=== PATIENT | female | born 1975 | race Caucasian/White ===

== ENCOUNTER 2018-04-24 11:01 | Emergency (ER) | payer OTHER ==
[~2018-04-24] VITALS: Ht 162.6 cm; Wt 101.6 kg
[~2018-04-24 11:01] MED LIST: CIPRO500 MG PO; FLAGYL500 MG PO; NORCO 5-325 TA1 EACH PO; ZOFRAN ODT4 MG PO
[2018-04-24 11:53] LABS: ABSOLUTE BASOPHILS 0.1 thou/uL (0.0-0.2); ABSOLUTE EOSINOPHILS 0.1 thou/uL (0.0-0.7); ABSOLUTE LYMPHOCYTES 2.8 thou/uL (0.8-5.3); ABSOLUTE MONOCYTES 0.8 thou/uL (0.0-1.2); ABSOLUTE NEUTROPHILS 8.3 thou/uL (1.6-8.1); BASOPHILS 0.7 %; EOSINOPHILS 0.4 %; HEMATOCRIT 39.8 % (37.0-47.0); HEMOGLOBIN 13.3 gm/dL (12.0-15.0); LYMPHOCYTES 23.3 %; MCH 28.2 pg (26.0-34.0); MCHC 33.4 g/dL (28.0-37.0); MCV 84.5 fL (80.0-100.0); MONOCYTES 6.9 %; MPV 8.1 fl. (7.2-11.1); NUCLEATED RBCS 0 /100WBC; PLATELET COUNT* 361 thou/uL (150-400); POLYS 68.7 %; RBC 4.71 mil/uL (4.20-5.00); RDW-CV 13.3 % (10.5-14.5); WBC 12.1 thou/uL (4.0-11.0)
[2018-04-24 12:00] LABS: ANION GAP 9 mmol/L (7-16); BUN 21 mg/dL (7-18); CALCIUM 9.2 mg/dL (8.5-10.1); CHLORIDE 100 mmol/L (98-107); CO2 27 mmol/L (21-32); CREATININE 0.8 mg/dL (0.6-1.3); GLUCOSE 89 mg/dL (70-99); POTASSIUM 3.6 mmol/L (3.5-5.1); SODIUM 136 mmol/L (136-145)
[2018-04-24 12:07] LABS: ALBUMIN 3.6 g/dL (3.4-5.0); ALKALINE PHOSPHATASE 86 U/L (46-116); LIPASE 113 U/L (73-393); SGOT 18 U/L (15-37); SGPT 25 U/L (30-65); TOTAL BILIRUBIN 0.5 mg/dL (<0.1-1.0); TOTAL PROTEIN 8.3 g/dL (6.4-8.2); TROPONIN-I LEVEL <0.06 ng/mL (<0.06)
[2018-04-24 12:12] LABS: URINE BILIRUBIN NEGATIVE (Negative); URINE BLOOD 1+ (Negative); URINE CLARITY CLEAR; URINE COLOR YELLOW; URINE GLUCOSE-RANDOM NEGATIVE (Negative); URINE KETONES NEGATIVE (Negative); URINE LEUKOCYTES-REFLEX NEGATIVE (Negative); URINE NITRITE-REFLEX NEGATIVE (Negative); URINE PROTEIN NEGATIVE (Negative); URINE SPECIFIC GRAVITY <= 1.005 (1.005-1.030); URINE UROBILINOGEN 0.2 E.U./dl (0.2-1.0)
[2018-04-24] MEDS ORDERED: MOBIC15 MG PO (12:36)
[2018-04-24] MEDS ORDERED: TRAMADOL 50 MG50 MG PO (12:36)
[2018-04-24 12:39] LABS: BACTERIA-REFLEX 1-9 Few /HPF (None Seen); CASTS None Seen /LPF (None Seen); CRYSTALS None Seen /LPF (None Seen); MUCUS 0-3 Light strn/LPF (None Seen); SQUAMOUS 0-3 Few /LPF (0-3); URINE RBC 0-2 Rare /HPF (0-2); URINE WBC-REFLEX 0-5 Rare /HPF (0-5)
[2018-04-24 12:50] VITALS: BP 131/80
--- NOTE | 2018-04-25 09:34 | EKG ---
[place] [address] ELECTROCARDIOGRAM REPORT Name: BECKA MCDONALD Room: [facility]#: [id number] Admission: 04/24/18 Attend Phys: Discharge: 04/24/18 Date of : 79 Report #: [id number] THIS REPORT FOR: //name// [facility] ED Test Date: 2018-04-24 Test Time: 11:48:46 Pat Name: BECKA MCDONALD Department: Room: Gender: F Campus Administrator: GERI : 1975 Requested By: Mera Tanner Order Number: [id number] MD: Santino Vásquez Measurements Intervals [place] Rate: 90 P: 41 FL: 158 QRS: -41 QRSD: 122 T: 25 QT: 390 QTc: 478 Interpretive Statements Sinus rhythm Nonspecific IVCD with LAD No previous ECG available for comparison Electronically Signed On 04-25-2018 9:33:47 CDT by Santino Vásquez [email or web address] <ELECTRONICALLY SIGNED> By: Santino Vásquez MD, [facility] 04/25/18 0933 [id number] [id number] Santino Vásquez MD, [facility] /EPI
== END 2018-04-24 12:51 | disposition home or self-care (01) ==
LOC: M.ERS 11:01
PROVIDERS: Physician Assistant
DX: R07.81 Pleurodynia (principal); M94.0 Chondrocostal junction syndrome [Tietze]

== ENCOUNTER → 2019-02-17 | Outpatient (CLI) | payer OTHER ==
[~2019-02-17] MED LIST changes: +MOBIC15 MG PO; +TRAMADOL 50 MG50 MG PO
== END ==
LOC: M.RAD 07:50
DX: Z12.31 Encounter for screening mammogram for malignant neoplasm of breast (principal)

== ENCOUNTER 2019-09-16 12:01 | Emergency (ER) | payer OTHER ==
[~2019-09-16] VITALS: Ht 162.6 cm; Wt 96.2 kg
[2019-09-16 12:12] VITALS: BP 114/66
[2019-09-16 12:42] LABS: ABSOLUTE BASOPHILS 0.1 thou/uL (0.0-0.2); ABSOLUTE MONOCYTES 1.4 thou/uL (0.0-1.2); ABSOLUTE NEUTROPHILS 12.7 thou/uL (1.6-8.1); BASOPHILS 0.3 %; EOSINOPHILS 0.1 %; HEMATOCRIT 41.3 % (37.0-47.0); HEMOGLOBIN 14.1 gm/dL (12.0-15.0); LYMPHOCYTES 17.4 %; MCH 28.9 pg (26.0-34.0); MCHC 34.1 g/dL (28.0-37.0); MCV 84.7 fL (80.0-100.0); MONOCYTES 8.1 %; MPV 8.2 fl. (7.2-11.1); NUCLEATED RBCS 0 /100WBC; PLATELET COUNT* 362 thou/uL (150-400); POLYS 74.1 %; RBC 4.88 mil/uL (4.20-5.00); RDW-CV 13.7 % (10.5-14.5); WBC 17.2 thou/uL (4.0-11.0)
[2019-09-16 12:52] LABS: CALCIUM 9.5 mg/dL (8.5-10.1); CREATININE 1.1 mg/dL (0.6-1.3); POTASSIUM 3.4 mmol/L (3.5-5.1)
[2019-09-16 12:56] LABS: ALBUMIN 4.2 g/dL (3.4-5.0); TOTAL BILIRUBIN 0.8 mg/dL (<0.1-1.0); TOTAL PROTEIN 8.9 g/dL (6.4-8.2)
[2019-09-16 13:04] LABS: URINE BILIRUBIN NEGATIVE (Negative); URINE BLOOD 3+ (Negative); URINE CLARITY CLEAR; URINE COLOR YELLOW; URINE GLUCOSE-RANDOM NEGATIVE (Negative); URINE KETONES 1+ (Negative); URINE LEUKOCYTES-REFLEX NEGATIVE (Negative); URINE NITRITE-REFLEX NEGATIVE (Negative); URINE PROTEIN 1+ (Negative); URINE UROBILINOGEN 0.2 E.U./dl (0.2-1.0)
[2019-09-16 13:24] LABS: SQUAMOUS >10 Many /LPF (0-3)
[2019-09-16 13:25] LABS: CASTS None Seen /LPF (None Seen); CRYSTALS None Seen /LPF (None Seen); MUCUS >6 Heavy strn/LPF (None Seen); URINE RBC 3-10 Few /HPF (0-2); URINE WBC-REFLEX None Seen /HPF (0-5)
[2019-09-16] MEDS ORDERED: FLAGYL500 M1 PO (15:12)
[2019-09-16] MEDS ORDERED: CIPRO500 M1 PO (15:12)
[2019-09-16] MEDS ORDERED: ZOFRAN ODT4 MG PO (15:12)
[2019-09-16 16:22] VITALS: BP 105/54
== END 2019-09-16 16:23 | disposition home or self-care (01) ==
LOC: M.ERS 12:01 → M.TBA-ER 14:34 → M.ERS 16:23
PROVIDERS: Nurse Practitioner Psychiatric/Mental Health
DX: K57.32 Diverticulitis of large intestine without perforation or abscess without bleeding (principal); D72.829 Elevated white blood cell count, unspecified; D25.9 Leiomyoma of uterus, unspecified; Z98.890 Other specified postprocedural states

== ENCOUNTER 2020-01-05 01:46 | Emergency (ER) | payer OTHER ==
[~2020-01-05] VITALS: Ht 162.6 cm; Wt 92.5 kg
[~2020-01-05 01:46] MED LIST changes: +CIPRO500 M1 PO; +FLAGYL500 M1 PO
[2020-01-05] MEDS ORDERED: CIPRO (01:58)
[2020-01-05] MEDS ORDERED: FLAGYL (01:59)
[2020-01-05 02:11] LABS: URINE BLOOD 3+ (Negative); URINE CLARITY CLEAR; URINE COLOR YELLOW; URINE GLUCOSE-RANDOM NEGATIVE (Negative); URINE KETONES TRACE (Negative); URINE LEUKOCYTES-REFLEX TRACE (Negative); URINE NITRITE-REFLEX NEGATIVE (Negative); URINE PROTEIN 1+ (Negative); URINE SPECIFIC GRAVITY >= 1.030 (1.005-1.030); URINE UROBILINOGEN 0.2 E.U./dl (0.2-1.0)
[2020-01-05 02:13] LABS: URINE BILIRUBIN 1+ (Negative)
[2020-01-05 02:18] LABS: ICTOTEST (BILI CONFIRMATORY) Negative (Negative)
[2020-01-05 02:26] LABS: ABSOLUTE BASOPHILS 0.1 thou/uL (0.0-0.2); ABSOLUTE EOSINOPHILS 0.1 thou/uL (0.0-0.7); ABSOLUTE LYMPHOCYTES 3.6 thou/uL (0.8-5.3); ABSOLUTE MONOCYTES 1.3 thou/uL (0.0-1.2); ABSOLUTE NEUTROPHILS 7.9 thou/uL (1.6-8.1); BASOPHILS 0.5 %; EOSINOPHILS 0.9 %; HEMATOCRIT 40.1 % (37.0-47.0); HEMOGLOBIN 13.7 gm/dL (12.0-15.0); LYMPHOCYTES 27.8 %; MCH 29.1 pg (26.0-34.0); MCHC 34.2 g/dL (28.0-37.0); MPV 8.8 fl. (7.2-11.1); NUCLEATED RBCS 0 /100WBC; PLATELET COUNT* 350 thou/uL (150-400); POLYS 60.8 %; RBC 4.72 mil/uL (4.20-5.00); RDW-CV 13.6 % (10.5-14.5)
[2020-01-05 02:28] LABS: CALCIUM 8.6 mg/dL (8.5-10.1); POTASSIUM 3.7 mmol/L (3.5-5.1)
[2020-01-05 02:35] LABS: ALBUMIN 3.7 g/dL (3.4-5.0); TOTAL BILIRUBIN 0.3 mg/dL (<0.1-1.0); TOTAL PROTEIN 8.4 g/dL (6.4-8.2)
[2020-01-05 03:24] LABS: CASTS None Seen /LPF (None Seen); MUCUS 0-3 Light strn/LPF (None Seen); SQUAMOUS >10 Many /LPF (0-3); URINE WBC-REFLEX 0-5 Rare /HPF (0-5)
[2020-01-05 03:25] LABS: CALCIUM OXALATE 4-10 Moderate /LPF (None Seen); URINE RBC 3-10 Few /HPF (0-2)
[2020-01-05] MEDS ORDERED: HYDROCODON-ACE1 EAC8 PO (06:06)
[2020-01-05 06:52] VITALS: BP 97/56
== END 2020-01-05 06:52 | disposition home or self-care (01) ==
LOC: M.ERS 01:46
PROVIDERS: Emergency Medicine
DX: N83.292 Other ovarian cyst, left side (principal); Z98.890 Other specified postprocedural states

== ENCOUNTER → 2020-07-03 | Outpatient (CLI) | payer OTHER ==
[~2020-07-03] MED LIST changes: +CIPRO; +FLAGYL; +HYDROCODON-ACE1 EAC8 PO
== END ==
LOC: M.LAB 09:00
PROVIDERS: ATTEND Internal Medicine Gastroenterology
DX: Z01.812 Encounter for preprocedural laboratory examination (principal); Z11.59 Encounter for screening for other viral diseases; Z87.19 Personal history of other diseases of the digestive system

== ENCOUNTER → 2021-10-22 | Outpatient (CLI) | payer OTHER | LOC: M.RAD 07:51 | PROVIDERS: ATTEND Student in an Organized Health Care Education/Training Program | DX: Z12.31 Encounter for screening mammogram for malignant neoplasm of breast (principal) ==